=== PATIENT | male | born 1970 | race Caucasian/White ===

== ENCOUNTER 2022-07-09 23:55 | Inpatient (IN) | payer BC ==
[~2022-07-09] VITALS: Ht 182.9 cm; Wt 149.2 kg
[2022-07-09 23:59] VITALS: BP 160/100
--- NOTE | 2022-07-10 00:08 | NUR ---
PT AMBULATED TO BED #8
--- NOTE | 2022-07-10 00:09 | NUR ---
STAT EKG at bedside.
[2022-07-10] MEDS ORDERED: ASPIRIN 325 MG TAB PO ONE (00:25)
--- NOTE | 2022-07-10 00:47 | NUR ---
XRAY AND LABS DONE
[2022-07-10 00:57] LABS: BASOPHILS # (AUTO) 0.2 K/uL (0.00-0.22); BASOPHILS % (AUTO) 1.6 % (0.0-2.0); EOSINOPHILS # (AUTO) 0.3 K/uL (0-0.4); EOSINOPHILS % (AUTO) 2.8 % (0.0-4.0); HEMATOCRIT 44.3 % (36-52); HEMOGLOBIN 15.2 g/dL (12.0-18.0); LYMPHOCYTES # (AUTO) 2.7 K/uL (2.0-11.5); LYMPHOCYTES % (AUTO) 27.3 % (20.5-51.1); MEAN CORPUSCULAR HEMOGLOBIN 31 pg (27-31); MEAN CORPUSCULAR HGB CONC 34 g/dL (33-37); MEAN CORPUSCULAR VOLUME 89.9 fL (80-94); MONOCYTES # (AUTO) 0.8 K/uL (0.8-1.0); MONOCYTES % (AUTO) 8.7 % (1.7-9.3); NEUTROPHILS # (AUTO) 5.8 K/uL (1.8-7.7); NEUTROPHILS % (AUTO) 59.6 % (42.2-75.2); PLATELET COUNT (AUTO) 217 K/uL (140-450); RED BLOOD CELL COUNT(AUTO) 4.93 MIL/uL (4.20-6.10); RED CELL DISTRIBUTION WIDTH 13.4 % (11.6-13.7); WHITE BLOOD COUNT (AUTO) 9.7 K/uL (4.8-10.8)
[2022-07-10 01:24] LABS: ALBUMIN 2.7 g/dL (3.4-5.0); ANION GAP 9.5 (8-16); ASPARTATE AMINOTRANSFERASE 49 U/L (15-37); CARBON DIOXIDE 25.7 mmol/L (21-32); CHLORIDE 111 mmol/L (98-107); CREATININE 0.6 mg/dL (0.6-1.3); GFR ARICAN-AMERICAN 182 mL/min (>90); GLUCOSE 119 mg/dL (74-106); LIPASE 71 U/L (73-393); POTASSIUM 4.2 mmol/L (3.5-5.1); SODIUM SERUM 142 mmol/L (136-145); TOTAL BILIRUBIN 0.3 mg/dL (0.0-1.0); UREA NITROGEN, BLOOD 14 mg/dL (7-18)
[2022-07-10] MEDS ORDERED: NITROGLYCERIN 0.4 MG TAB SL ONE (01:35)
--- NOTE | 2022-07-10 01:40 | NUR ---
DR UNGER AT BEDSIDE
--- NOTE | 2022-07-10 01:47 | NUR ---
PT TO BE ADMITED TO HOSPITAL COVID SWAB COLLECTED AND SENT TO LAB
--- NOTE | 2022-07-10 02:05 | NUR ---
PAIN LEVEL 2/10 HEADACHE S/P NITRO. BP 142/95
[2022-07-10] MEDS ORDERED: CALCIUM GLUC 1 GM/50 mL NS BAG 50 ML IV ONE (02:55)
[2022-07-10] MEDS ORDERED: HYDROcodone/APAP 5/325 MG 1 TAB TAB PO PRN (03:10)
--- NOTE | 2022-07-10 04:21 | NUR ---
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 VS RECHECKED. BP ELEVATED. DENIES CP OR SOB. HOB ELEVATED. RESP EVEN AND UNLABORED.
--- NOTE | 2022-07-10 07:25 | NUR ---
Report received from BRANDEE Vásquez for transfer of care.
[2022-07-10] MEDS: hydrALAZINE 20 MG/ML VIAL IVP PRN ×2 (08:36→17:36)
[2022-07-10] MEDS ORDERED: DOCUSATE SODIUM 100 MG GELCAP PO PRN (08:50)
[2022-07-10] MEDS ORDERED: HYDROcodone/APAP 7.5/325 MG 1 TAB PO PRN (08:50)
[2022-07-10] MEDS ORDERED: ZOLPIDEM 5 MG TAB PO PRN (08:50)
[2022-07-10] MEDS ORDERED: guaiFENesin DM 200/20 MG-10 ML 10 ML UDC PO PRN (08:50)
[2022-07-10] MEDS ORDERED: POTASSIUM CHLORIDE 10 MEQ TABER PO PRN (08:50)
[2022-07-10] MEDS ORDERED: ONDANSETRON 4 MG/2 ML VIAL IM/IVP PRN (08:50)
[2022-07-10] MEDS ORDERED: NITROGLYCERIN 0.4 MG TAB SL PRN (08:55)
[2022-07-10] MEDS ORDERED: lisinopriL 20 MG TAB PO SCH ×2 (09:00→12:30)
[2022-07-10] MEDS ORDERED: METOPROLOL 25 MG TAB PO SCH (09:00)
[2022-07-10] MEDS: NACL 0.9% 1,000 ML IV SCH (09:22)
--- NOTE | 2022-07-10 09:25 | NUR ---
Dr. Braxton, admitting doctor, evaluating patient at bedside.
[2022-07-10 09:46] LABS: CHOL/HDL RATIO 3.8 (1-4.5); FREE T4 (FREE THYROXINE) 0.94 ng/dL (0.76-1.46); PHOSPHORUS 2.9 mg/dL (2.5-4.9); THYROID STIMULATING HORMONE 0.84 uIU/mL (0.34-3.74)
[2022-07-10] MEDS: PANTOPRAZOLE 40 MG TABEC PO SCH (10:21)
[2022-07-10 10:40] LABS: PROTHROMBIN TIME 9.9 secs (10.8-13.4)
--- NOTE | 2022-07-10 11:10 | NUR ---
Patient will be admitted to care of Dr. Braxton. Admitted to telemetry. Will go to room 104A.Belongings list completed. Report to Indy GUALLPA
--- NOTE | 2022-07-10 11:15 | NUR ---
RECEIVED REPORT FROM ER NURSES ELOISE AND DAIANA FOR CONTINUITY OF CARE. PT WAS STABLE ON TRANSPORT AND ELDER NO SIGNS OF DISTRESS OR LABORED BREATHING UPON ARRIVAL. PT IS A&OX4, ON ROOM AIR, SKIN INTACT, NO COMPLAINTS OF CHEST PAIN AT THIS TIME AND WAS PLACED ON A CARDIAC DIET. HE HAS A 20G IV IN HIS R HAND THAT IS PATENT, INTACT AND INFUSING NS@60 ML/HR. BED IN LOW POSITION, TWO SIDE RAILS UP, CALL LIGHT WITHIN REACH AND ALL SAFETY MEASURES IN PLACE. WILL CONTINUE TO MONITOR.
--- NOTE | 2022-07-10 11:22 | NUR ---
The patient's care was reviewed and supervised by Indy Warren, RN, RN.
[2022-07-10 12:00] VITALS: BP 167/103
[2022-07-10] MEDS ORDERED: hydrALAZINE 10 MG TAB PO SCH (12:30)
[2022-07-10 13:33] LABS: APPEARANCE,URINE CLEAR (CLEAR); BILIRUBIN,URINE NEGATIVE (NEGATIVE); BLOOD, URINE NEGATIVE (NEGATIVE); COLOR,URINE YELLOW (YELLOW); LEUKOCYTE ESTERASE ,URINE NEGATIVE (NEGATIVE); NITRITE, URINE NEGATIVE (NEGATIVE); PH,URINE 7.5 (5.0-9.0); UGLUCOSE NEGATIVE (NEGATIVE)
[2022-07-10 13:47] LABS: BARBITURATE, URINE NEGATIVE ng/ml (NEG <=200); BENZODIAZEPINE, URINE NEGATIVE ng/mL (NEG <=200); CANNABINOID, URINE NEGATIVE ng/mL (NEG <=50); COCAINE, URINE NEGATIVE ng/mL (NEG <=300); OPIATE, URINE NEGATIVE ng/mL (NEG <=2000); PHENCYCLIDINE SCREEN,URINE NEGATIVE ng/mL (NEG <=25)
[2022-07-10] MEDS ORDERED: LOVENOX 1MG/KG Q12H SUBQ SCH (14:00)
[2022-07-10] MEDS ORDERED: ENOXAPARIN 30 MG/0.3 ML SYR SUBQ ONE (15:00)
[2022-07-10] MEDS ORDERED: ENOXAPARIN 30 MG/0.3 ML SYR SUBQ SCH (15:30)
[2022-07-10] MEDS ORDERED: ENOXAPARIN 120 MG/0.8 ML SYR SUBQ SCH (15:30)
[2022-07-10 16:00] VITALS: BP 158/101
--- NOTE | 2022-07-10 16:33 | NUR ---
PATIENT HAS BEEN SCREENED AND CATEGORIZED HIGH NUTRITION RISK. PATIENT WILL BE SEEN WITHIN 1-2 DAYS OF ADMISSION. 07/11/2212/23/22 REVIEWED BY SANDRA PRICE RD
--- NOTE | 2022-07-10 19:00 | NUR ---
ENDORSED PT TO INSURANCE SALESPERSON NURSE REBA FOR CONTINUITY OF CARE. PT IS STABLE AT THIS TIME.
--- NOTE | 2022-07-10 19:30 | NUR ---
RECEIVED PT FROM DAY SHIFT RN FOR CONTINUITY OF CARE.PT AWAKE, ALERT AND ORIENTED X 4. ON ROOM AIR, BREATHING EVEN AND UNLABORED. IV ON R HAND G20, INFUSING FLUIDS PER MD ORDER. DENIES PAIN AT THIS TIME. POC DISCUSSED. ALL PRECAUTIONS IN PLACE. CALL LIGHT WITHIN REACH. WILL CONTINUE TO MONITOR.
[2022-07-10 20:00] VITALS: BP 162/85
[2022-07-10] MEDS: carvediloL 12.5 MG TAB PO SCH (20:36)
[2022-07-10] MEDS: ENOXAPARIN 120 MG/0.8 ML SYR SUBQ SCH (20:36)
[2022-07-10] MEDS: ENOXAPARIN 30 MG/0.3 ML SYR SUBQ SCH (20:37)
[2022-07-10] MEDS ORDERED: ATORVASTATIN 20 MG TAB PO SCH (21:00)
--- NOTE | 2022-07-10 21:30 | NUR ---
SCHEDULED MEDICATIONS GIVEN. PT TOLERATED WELL. WILL CONTINUE TO MONITOR
[2022-07-10] MEDS ORDERED: hydrALAZINE 20 MG/ML VIAL IVP PRN (23:35)
[2022-07-11] VITALS: BP 149/97
[2022-07-11] MEDS: NACL 0.9% 1,000 ML IV SCH ×2 (01:46→18:10)
--- NOTE | 2022-07-11 01:59 | NUR ---
PT ASLEEP. VISIBLE CHEST RISE AND FALL NOTED.BREATHING EQUAL AND UNLABORED. ALL PRECAUTIONS IN PLACE. CALL LIGHT WITHIN REACH. WILL CONTINUE TO MONITOR.
[2022-07-11 04:00] VITALS: BP 105/70
--- NOTE | 2022-07-11 06:15 | NUR ---
PT COMPLAINS OF HEADACHE. PRN TYLENOL GIVEN.WILL CONTINUE TO MONITOR.
[2022-07-11] MEDS: ACETAMINOPHEN 325 MG TAB PO PRN ×2 (06:30→15:36)
--- NOTE | 2022-07-11 06:33 | NUR ---
PT IS STABLE. NO ACUTE EVENTS THROUGHOUT THE NIGHT. ALL NEEDS ATTENDED. NO S/SX OF DISTRESS OF THE MOMENT.ALL PRECAUTIONS IN PLACE. CALL LIGHT WITHIN REACH. WILL ENDORSE TO AM SHIFT NURSE.
--- NOTE | 2022-07-11 07:00 | NUR ---
RECEIVED REPORT FROM ZIPPER MEASURER NURSE REBA FOR CONTINUITY OF CARE. NO SIGNS OF DISTRESS OR LABORED BREATHING AT THIS TIME. PT IS A&OX4, ON ROOM AIR, SKIN INTACT, NO COMPLAINTS OF CHEST PAIN AT THIS TIME AND WAS PLACED ON A CARDIAC DIET. HE HAS A 20G IV IN HIS R HAND THAT IS PATENT, INTACT AND INFUSING NS@60 ML/HR. BED IN LOW POSITION, TWO SIDE RAILS UP, CALL LIGHT WITHIN REACH AND ALL SAFETY MEASURES IN PLACE. WILL CONTINUE TO MONITOR.
[2022-07-11 07:24] LABS: ANION GAP 5.8 (8-16); CARBON DIOXIDE 29.3 mmol/L (21-32); CREATININE 0.8 mg/dL (0.6-1.3); POTASSIUM 4.1 mmol/L (3.5-5.1)
[2022-07-11 07:35] LABS: BASOPHILS # (AUTO) 0.1 K/uL (0.00-0.22); BASOPHILS % (AUTO) 0.8 % (0.0-2.0); EOSINOPHILS # (AUTO) 0.2 K/uL (0-0.4); EOSINOPHILS % (AUTO) 2.4 % (0.0-4.0); HEMATOCRIT 46.1 % (36-52); HEMOGLOBIN 15.9 g/dL (12.0-18.0); LYMPHOCYTES # (AUTO) 3.4 K/uL (2.0-11.5); LYMPHOCYTES % (AUTO) 34.6 % (20.5-51.1); MEAN CORPUSCULAR HEMOGLOBIN 31 pg (27-31); MEAN CORPUSCULAR HGB CONC 35 g/dL (33-37); MEAN CORPUSCULAR VOLUME 90.4 fL (80-94); MONOCYTES # (AUTO) 0.7 K/uL (0.8-1.0); MONOCYTES % (AUTO) 7.2 % (1.7-9.3); NEUTROPHILS # (AUTO) 5.4 K/uL (1.8-7.7); PLATELET COUNT (AUTO) 251 K/uL (140-450); RED CELL DISTRIBUTION WIDTH 13.4 % (11.6-13.7); WHITE BLOOD COUNT (AUTO) 9.8 K/uL (4.8-10.8)
[2022-07-11 08:00] VITALS: BP 149/88
[2022-07-11 08:08] LABS: T4 (THYROXINE) 8.5 ug/dL (4.5-12.0)
[2022-07-11] MEDS ORDERED: lisinopriL 20 MG TAB PO SCH (09:00)
[2022-07-11] MEDS ORDERED: ECOTRIN 81 MG TABEC PO SCH (09:00)
[2022-07-11] MEDS ORDERED: ATORVASTATIN 80 MG TAB PO SCH (09:00)
[2022-07-11] MEDS: carvediloL 12.5 MG TAB PO SCH ×2 (09:22→21:01)
[2022-07-11] MEDS: PANTOPRAZOLE 40 MG TABEC PO SCH (09:23)
[2022-07-11] MEDS: ENOXAPARIN 120 MG/0.8 ML SYR SUBQ SCH ×2 (09:29→21:03)
[2022-07-11] MEDS: ENOXAPARIN 30 MG/0.3 ML SYR SUBQ SCH ×2 (09:30→21:03)
[2022-07-11 12:00] VITALS: BP 152/95
--- NOTE | 2022-07-11 12:00 | NUR ---
PT ASKED TO TALK TO TECHNICAL SUPPORT ASSOCIATE. I NOTIFIED JULIAN AND SHE SAID SHE WOULD BE DOWN.
--- NOTE | 2022-07-11 13:54 | NUR ---
DC PLANNING: CALLED [facility] SPOKE WITH [facility] [employer] PROVIDE THE REF # [id number] ARRANGED TRANSPORT WITH [facility] PLACE IT WILL CALL.
--- NOTE | 2022-07-11 15:31 | NUR ---
LUDY DAVID MET WITH PT AT BEDSIDE TO COMPLETE ASSESSMENT. PT RESIDES IN A SINGLE STORY HOME WITH HIS AND SON, AT THE ADDRESS LISTED ON FILE. PT IDENTIFIED DEJA BANKS, , EMERGENCY CONTACT. PT DENIES AD IN PLACE AND DECLINED AD OFFERED BY FRANKIE. PT REPORTS LAST VISIT WITH PCP, DR. MILO GARCIA, 1 YR AGO. PT DENIES TAKING MEDICATION AT THIS TIME AND DENIES BARRIERS IN ACCESS TO NEEDED MEDICATIONS. PT RECEIVES MEDICATION FROM [facility] IN [place], WHEN NEEDED. PT REPORTS BEING INDEPENDENT IN ALL ACTIVITIES AND DENIES USE OF DME. PT COMPLETES ALL ADL'S INDEPENDENTLY. PT DENIES MH/AVALOS HX. PT DENIES HX OF HH, DIABETES, DIALYSIS [place], SNF PLACEMENT. CM CURRENTLY WORKING ON ORDER FOR HLOC FOR CARDIAC CATH. PATIENT AWARE. FRANKIE INQUIRED ON RESOURCES NEEDED, PT DECLINED. Addendum: 07/11/22 at 1532 by Keyana LION Amended: Links added.
[2022-07-11 16:00] VITALS: BP 126/78
--- NOTE | 2022-07-11 19:15 | NUR ---
ENDORSED PT TO WELL LOGGING CAPTAIN MUD ANALYSIS NURSE REBA FOR CONTINUITY OF CARE. PT IS STABLE AT THIS TIME.
[2022-07-11 20:00] VITALS: BP 131/80
--- NOTE | 2022-07-11 20:27 | NUR ---
SPOKE TO TH[facility] OF [facility],SHE SAID THEY ARE WORKING ON FINDING A BED FOR PATIENT TONIGHT OR TOMORROW MORNING.
--- NOTE | 2022-07-11 22:30 | NUR ---
PT ASLEEP. VISIBLE CHEST RISE AND FALL NOTED.BREATHING EQUAL AND UNLABORED. ALL PRECAUTIONS IN PLACE. CALL LIGHT WITHIN REACH. WILL CONTINUE TO MONITOR.
[2022-07-12] VITALS: BP 155/94
--- NOTE | 2022-07-12 00:20 | NUR ---
VITALS STABLE. NO COMPLAINS OF PAIN. NO S/SX OF DISTRESS NOTED. ALL PRECAUTIONS IN PLACE. WILL CONTINUE TO MONITOR.
--- NOTE | 2022-07-12 00:36 | NUR ---
PT WAS PICKED UP BY GLORIA GOING TO [facility].. PT IN STABLE CONDITION. NO COMPLAINS OF CHEST PAIN OR SOB.
== END 2022-07-12 00:30 | disposition short-term general hospital (02) | DRG 280 ==
LOC: MED 23:55 → MTU 07-10 03:08
PROVIDERS: ADMIT Family Medicine; ATTEND Family Medicine
DX: I24.9 Acute ischemic heart disease, unspecified (principal); I21.A1 Myocardial infarction type 2; E43 Unspecified severe protein-calorie malnutrition; Z68.41 Body mass index [BMI] 40.0-44.9, adult; E83.51 Hypocalcemia; E78.5 Hyperlipidemia, unspecified; E11.9 Type 2 diabetes mellitus without complications; Z20.822 Contact with and (suspected) exposure to COVID-19; I10 Essential (primary) hypertension
CPT/HCPCS: 36415; 71045; 80048; 80053; 80305; 81003; 82150; 83036; 83690; 83735; 83880; 84100; 84436; 84439; 84443; 84479; 84484; 85025; 85610; 85730; 87081; 99285; J0360; J0610; J1644; J1650; Q0092